=== PATIENT | male | born 1985 | race African-American/Black ===

== ENCOUNTER 2020-05-09 04:17 | Inpatient (IN) | payer OTHER ==
[2020-05-09] VITALS (17 sets, daily range): BP systolic 148–215; BP diastolic 93–134
[~2020-05-09] VITALS: Ht 185.4 cm; Wt 117.9 kg
[2020-05-09] MEDS ORDERED: NICARDIPINE 20MG/200ML PREMIX 200 ML ONE (07:07)
[2020-05-09 08:00] LABS: BASOPHILS % 0.6 % (0.0-1.0); EOSINOPHILS # (AUTO) 0.2 (0.0-0.4); EOSINOPHILS % 2.8 % (0.0-6.0); HEMATOCRIT 42.5 % (38.2-49.6); HEMOGLOBIN 13.8 g/dL (14.0-18.0); LYMPHOCYTES # (AUTO) 1.2 (1.0-3.2); LYMPHOCYTES % 17.9 % (18.0-39.1); MEAN CORPUSCULAR HEMOGLOBIN 27.3 pg (28-32); MEAN CORPUSCULAR HGB CONC 32.5 g/dL (31-35); MEAN CORPUSCULAR VOLUME 84.2 fL (81-99); MONOCYTES # (AUTO) 0.7 (0.2-0.8); MONOCYTES % 10.3 % (4.4-11.3); NEUTROPHILS # (AUTO) 4.5 (2.1-6.9); NEUTROPHILS % 67.7 % (38.7-80.0); PLATELET COUNT 160 x10e3/uL (140-360); RED BLOOD COUNT 5.05 x10e6/uL (4.3-5.7); RED CELL DISTRIBUTION WIDTH 14.3 % (11.7-14.4)
[2020-05-09 08:21] LABS: ALBUMIN 3.8 g/dL (3.5-5.0); ALBUMIN/GLOBULIN RATIO 1.2 (0.8-2.0); ANION GAP 16.9 mmol/L (8-16); CALCIUM 7.7 mg/dL (8.4-10.2); CREATININE, SERUM 2.62 mg/dL (0.72-1.25)
[2020-05-09 08:31] LABS: POTASSIUM 2.9 mmol/L (3.5-5.1)
[2020-05-09] MEDS: NICARDIPINE 20MG/200ML PREMIX 200 ML IV SCH ×3 (08:32→13:18)
[2020-05-09] MEDS ORDERED: CARVEDILOL 12.5 MG TAB PO SCH (09:00)
[2020-05-09] MEDS: NIFEDIPINE CR 30 MG TAB PO SCH ×2 (09:44→20:47)
[2020-05-09] MEDS: ENOXAPARIN INJ 80 MG/0.8 ML SYR SC SCH ×2 (10:00→20:47)
[2020-05-09] MEDS ORDERED: MINOXIDIL 2.5 MG TAB PO SCH (10:00)
[2020-05-09] MEDS: CLONAZEPAM 1 MG TAB PO PRN ×2 (10:09→20:48)
[2020-05-09] MEDS: HYDROCODONE/APAP 10MG-325MG TAB PO PRN ×5 (10:09→20:55)
[2020-05-09] MEDS ORDERED: POTASSIUM CHLORIDE 20 MEQ TAB CR PO ONE (10:45)
[2020-05-09] MEDS ORDERED: CLONIDINE HCL 0.1 MG TAB PO SCH (13:00)
[2020-05-09] MEDS: SODIUM CHLORIDE 0.9% IV SCH ×2 (15:05→21:48)
[2020-05-09] MEDS: NICARDIPINE HCL IV SCH ×2 (15:05→21:48)
[2020-05-09] MEDS: CYCLOBENZAPRINE HCL 10 MG TAB PO PRN (15:17)
[2020-05-09] MEDS: CEFTRIAXONE SOD 1 GM in SODIUM CHLORIDE 0.9% 50ML 50 ML IV SCH (15:17)
[2020-05-09] MEDS: FUROSEMIDE INJ 10 MG/ML 4 ML VIAL IV SCH ×2 (15:17→20:46)
[2020-05-09] MEDS: FAMOTIDINE 20 MG TAB PO SCH (15:22)
[2020-05-09 15:31] LABS: CHOL/HDL RATIO 4.4 (3.9-4.7)
[2020-05-09] MEDS ORDERED: CEFTRIAXONE SOD 1 GM/50 ML BAG IV SCH (16:00)
[2020-05-09] MEDS ORDERED: METOPROLOL TARTRATE 50 MG TAB PO SCH (17:00)
[2020-05-09] MEDS: CLONIDINE HCL 0.2 MG TAB PO SCH ×2 (18:14→20:47)
[2020-05-09 19:04] LABS: ANION GAP 15.4 mmol/L (8-16); CALCIUM 7.5 mg/dL (8.4-10.2); CREATININE, SERUM 2.3 mg/dL (0.72-1.25); POTASSIUM 3.4 mmol/L (3.5-5.1)
[2020-05-09] MEDS: CARVEDILOL 12.5 MG TAB PO SCH (20:46)
[2020-05-09] MEDS: ATORVASTATIN 40 MG TAB PO SCH (20:47)
[2020-05-09] MEDS ORDERED: CYCLOBENZAPRINE HCL 10 MG TAB PO SCH (21:00)
[2020-05-10] VITALS (27 sets, daily range): BP systolic 119–227; BP diastolic 62–160
[2020-05-10] MEDS: HYDROCODONE/APAP 10MG-325MG TAB PO PRN ×6 (02:10→22:30)
[2020-05-10] MEDS: SODIUM CHLORIDE 0.9% IV SCH (04:08)
[2020-05-10] MEDS: NICARDIPINE HCL IV SCH (04:08)
[2020-05-10 05:01] LABS: BASOPHILS # (AUTO) 0.1 (0.0-0.1); BASOPHILS % 1.1 % (0.0-1.0); EOSINOPHILS # (AUTO) 0.9 (0.0-0.4); EOSINOPHILS % 14.2 % (0.0-6.0); HEMATOCRIT 40.6 % (38.2-49.6); HEMOGLOBIN 13.2 g/dL (14.0-18.0); LYMPHOCYTES # (AUTO) 1.2 (1.0-3.2); LYMPHOCYTES % 18.3 % (18.0-39.1); MEAN CORPUSCULAR HEMOGLOBIN 27.5 pg (28-32); MEAN CORPUSCULAR HGB CONC 32.5 g/dL (31-35); MEAN CORPUSCULAR VOLUME 84.6 fL (81-99); MONOCYTES # (AUTO) 0.6 (0.2-0.8); MONOCYTES % 10.1 % (4.4-11.3); NEUTROPHILS # (AUTO) 3.5 (2.1-6.9); NEUTROPHILS % 55.8 % (38.7-80.0); PLATELET COUNT 182 x10e3/uL (140-360)
[2020-05-10 05:31] LABS: ANION GAP 14.4 mmol/L (8-16); CALCIUM 7.1 mg/dL (8.4-10.2); CREATININE, SERUM 2.18 mg/dL (0.72-1.25); POTASSIUM 3.4 mmol/L (3.5-5.1)
[2020-05-10] MEDS: CLONIDINE HCL 0.2 MG TAB PO SCH ×4 (06:27→21:24)
[2020-05-10] MEDS: FUROSEMIDE INJ 10 MG/ML 4 ML VIAL IV SCH ×2 (08:39→20:00)
[2020-05-10] MEDS: FAMOTIDINE 20 MG TAB PO SCH ×2 (08:39→17:03)
[2020-05-10] MEDS: LOSARTAN POTASSIUM 25 MG TAB PO SCH ×2 (08:39→08:46)
[2020-05-10] MEDS: ASPIRIN 81 MG CHEW TAB PO SCH (08:39)
[2020-05-10] MEDS: CARVEDILOL 12.5 MG TAB PO SCH ×2 (08:39→20:00)
[2020-05-10] MEDS: ENOXAPARIN INJ 80 MG/0.8 ML SYR SC SCH (08:40)
[2020-05-10] MEDS: NIFEDIPINE CR 30 MG TAB PO SCH ×2 (08:40→20:00)
[2020-05-10 10:00] LABS: MAGNESIUM 1.7 MG/DL (1.3-2.1); PHOSPHORUS 3.6 MG/DL (2.3-4.7)
[2020-05-10] MEDS: CLONAZEPAM 1 MG TAB PO PRN ×2 (10:35→21:30)
[2020-05-10] MEDS: HYDRALAZINE HCL 25 MG TAB PO SCH ×2 (12:02→14:32)
[2020-05-10] MEDS ORDERED: HYDRALAZINE HCL 25 MG TAB PO SCH ×2 (15:00→17:00)
[2020-05-10] MEDS ORDERED: SPIRONOLACTONE 25 MG TAB PO ONE (16:45)
[2020-05-10] MEDS: CEFTRIAXONE SOD 1 GM in SODIUM CHLORIDE 0.9% 50ML 50 ML IV SCH (17:03)
[2020-05-10] MEDS: ATORVASTATIN 40 MG TAB PO SCH (20:00)
[2020-05-10] MEDS ORDERED: LABETALOL HCL 5 MG/ML 20ML VIAL IV STA (21:22)
[2020-05-10] MEDS: HYDRALAZINE HCL 20 MG/ML VIAL IV PRN (23:06)
[2020-05-11] VITALS (26 sets, daily range): BP systolic 167–209; BP diastolic 87–142
[2020-05-11] MEDS: HYDRALAZINE HCL 25 MG TAB PO SCH ×4 (00:15→17:31)
[2020-05-11] MEDS: LABETALOL HCL 5 MG/ML 20ML VIAL IV PRN ×5 (00:15→15:10)
[2020-05-11] MEDS: HYDRALAZINE HCL 20 MG/ML VIAL IV PRN ×3 (01:30→06:20)
[2020-05-11] MEDS: HYDROCODONE/APAP 10MG-325MG TAB PO PRN ×5 (02:40→19:30)
[2020-05-11 04:18] LABS: BASOPHILS # (AUTO) 0.1 (0.0-0.1); BASOPHILS % 0.8 % (0.0-1.0); EOSINOPHILS # (AUTO) 1.1 (0.0-0.4); EOSINOPHILS % 17.8 % (0.0-6.0); HEMATOCRIT 38.5 % (38.2-49.6); HEMOGLOBIN 12.5 g/dL (14.0-18.0); LYMPHOCYTES # (AUTO) 1.1 (1.0-3.2); LYMPHOCYTES % 17.3 % (18.0-39.1); MEAN CORPUSCULAR HEMOGLOBIN 27.7 pg (28-32); MEAN CORPUSCULAR HGB CONC 32.5 g/dL (31-35); MEAN CORPUSCULAR VOLUME 85.4 fL (81-99); MONOCYTES # (AUTO) 0.6 (0.2-0.8); MONOCYTES % 9.8 % (4.4-11.3); NEUTROPHILS # (AUTO) 3.5 (2.1-6.9); PLATELET COUNT 185 x10e3/uL (140-360); RED BLOOD COUNT 4.51 x10e6/uL (4.3-5.7); RED CELL DISTRIBUTION WIDTH 14.1 % (11.7-14.4)
[2020-05-11 04:36] LABS: ANION GAP 14.3 mmol/L (8-16); CALCIUM 7.3 mg/dL (8.4-10.2); CREATININE, SERUM 2.03 mg/dL (0.72-1.25); POTASSIUM 3.3 mmol/L (3.5-5.1)
[2020-05-11 04:50] LABS: MAGNESIUM 1.7 MG/DL (1.3-2.1)
[2020-05-11] MEDS: CLONIDINE HCL 0.2 MG TAB PO SCH (05:00)
[2020-05-11] MEDS: LOSARTAN POTASSIUM 25 MG TAB PO SCH (06:12)
[2020-05-11] MEDS: NIFEDIPINE CR 30 MG TAB PO SCH ×2 (06:13→22:50)
[2020-05-11] MEDS: FAMOTIDINE 20 MG TAB PO SCH ×2 (08:45→15:10)
[2020-05-11] MEDS: FUROSEMIDE INJ 10 MG/ML 4 ML VIAL IV SCH ×2 (08:45→22:49)
[2020-05-11] MEDS: ASPIRIN 81 MG CHEW TAB PO SCH (08:45)
[2020-05-11] MEDS: CARVEDILOL 12.5 MG TAB PO SCH (08:46)
[2020-05-11] MEDS ORDERED: SPIRONOLACTONE 25 MG TAB PO SCH (09:00)
[2020-05-11] MEDS ORDERED: LABETALOL HCL 200 MG TAB PO SCH (10:00)
[2020-05-11] MEDS: DOXAZOSIN MESYLATE 2 MG TAB PO SCH ×2 (11:16→22:49)
[2020-05-11] MEDS ORDERED: CLONIDINE HCL 0.3MG/24 HR PATCH TOP SCH (14:00)
[2020-05-11] MEDS ORDERED: POTASSIUM CHLORIDE 20 MEQ TAB CR PO NR (14:00)
[2020-05-11] MEDS ORDERED: CLONIDINE HCL 0.2 MG/24 HR 1 EA PATCH TOP SCH (14:00)
[2020-05-11] MEDS: CLONAZEPAM 1 MG TAB PO PRN (15:02)
[2020-05-11] MEDS: CEFTRIAXONE SOD 1 GM in SODIUM CHLORIDE 0.9% 50ML 50 ML IV SCH (15:10)
[2020-05-11] MEDS: LABETALOL HCL 200 MG TAB PO SCH (17:31)
[2020-05-11] MEDS: ATORVASTATIN 40 MG TAB PO SCH (22:49)
[2020-05-12] VITALS (28 sets, daily range): BP systolic 124–224; BP diastolic 58–143
[2020-05-12] MEDS: HYDRALAZINE HCL 25 MG TAB PO SCH ×4 (00:01→18:06)
[2020-05-12] MEDS: LABETALOL HCL 5 MG/ML 20ML VIAL IV PRN ×3 (03:46→18:06)
[2020-05-12] MEDS: HYDROCODONE/APAP 10MG-325MG TAB PO PRN ×7 (05:30→22:48)
[2020-05-12] MEDS: FAMOTIDINE 20 MG TAB PO SCH ×2 (08:19→16:48)
[2020-05-12] MEDS: MINOXIDIL 2.5 MG TAB PO SCH ×3 (08:19→20:55)
[2020-05-12] MEDS: FUROSEMIDE INJ 10 MG/ML 4 ML VIAL IV SCH ×2 (08:19→20:36)
[2020-05-12] MEDS: SPIRONOLACTONE 25 MG TAB PO SCH (08:19)
[2020-05-12] MEDS: ASPIRIN 81 MG CHEW TAB PO SCH (08:20)
[2020-05-12] MEDS: LOSARTAN POTASSIUM 25 MG TAB PO SCH (08:20)
[2020-05-12] MEDS: LABETALOL HCL 200 MG TAB PO SCH ×2 (08:20→16:49)
[2020-05-12] MEDS: NIFEDIPINE CR 30 MG TAB PO SCH ×2 (08:20→20:36)
[2020-05-12] MEDS: DOXAZOSIN MESYLATE 2 MG TAB PO SCH ×2 (08:20→20:36)
[2020-05-12] MEDS: ISOSORBIDE MONONITRATE 30 MG TAB CR PO SCH (14:10)
[2020-05-12] MEDS: CLONAZEPAM 1 MG TAB PO PRN (14:11)
[2020-05-12] MEDS: CEFTRIAXONE SOD 1 GM in SODIUM CHLORIDE 0.9% 50ML 50 ML IV SCH (16:48)
[2020-05-12] MEDS: HYDRALAZINE HCL 20 MG/ML VIAL IV PRN (16:49)
[2020-05-12] MEDS: ATORVASTATIN 40 MG TAB PO SCH (20:36)
[2020-05-13] VITALS (18 sets, daily range): BP systolic 164–227; BP diastolic 96–157
[2020-05-13] MEDS: HYDRALAZINE HCL 25 MG TAB PO SCH ×5 (06:12→23:50)
[2020-05-13] MEDS: MINOXIDIL 2.5 MG TAB PO SCH ×3 (06:12→22:00)
[2020-05-13 06:48] LABS: ANION GAP 15.2 mmol/L (8-16); CALCIUM 8.3 mg/dL (8.4-10.2); CREATININE, SERUM 1.92 mg/dL (0.72-1.25); POTASSIUM 3.2 mmol/L (3.5-5.1)
[2020-05-13] MEDS: HYDROCODONE/APAP 10MG-325MG TAB PO PRN ×5 (06:54→23:29)
[2020-05-13] MEDS: HYDRALAZINE HCL 20 MG/ML VIAL IV PRN ×3 (07:19→16:47)
[2020-05-13] MEDS: FAMOTIDINE 20 MG TAB PO SCH ×2 (07:47→16:18)
[2020-05-13] MEDS: ASPIRIN 81 MG CHEW TAB PO SCH (08:10)
[2020-05-13] MEDS: FUROSEMIDE INJ 10 MG/ML 4 ML VIAL IV SCH ×2 (08:10→20:44)
[2020-05-13] MEDS: SPIRONOLACTONE 25 MG TAB PO SCH (08:10)
[2020-05-13] MEDS: DOXAZOSIN MESYLATE 2 MG TAB PO SCH ×2 (08:11→20:44)
[2020-05-13] MEDS: ALPRAZOLAM 0.5 MG TAB PO SCH ×3 (08:11→20:45)
[2020-05-13] MEDS: ISOSORBIDE MONONITRATE 30 MG TAB CR PO SCH (08:11)
[2020-05-13] MEDS: NIFEDIPINE CR 30 MG TAB PO SCH ×2 (08:11→20:44)
[2020-05-13] MEDS: LOSARTAN POTASSIUM 25 MG TAB PO SCH (08:11)
[2020-05-13] MEDS: LABETALOL HCL 200 MG TAB PO SCH ×3 (08:11→18:59)
[2020-05-13] MEDS ORDERED: POTASSIUM CHLORIDE 10MEQ EA PO ONE (08:15)
[2020-05-13] MEDS: LABETALOL HCL 5 MG/ML 20ML VIAL IV PRN ×4 (09:24→23:14)
[2020-05-13] MEDS: CYCLOBENZAPRINE HCL 10 MG TAB PO PRN (15:22)
[2020-05-13] MEDS: CEFTRIAXONE SOD 1 GM in SODIUM CHLORIDE 0.9% 50ML 50 ML IV SCH (16:18)
[2020-05-13] MEDS: ATORVASTATIN 40 MG TAB PO SCH (20:44)
[2020-05-14] VITALS (17 sets, daily range): BP systolic 118–199; BP diastolic 56–136
[2020-05-14] MEDS: LABETALOL HCL 5 MG/ML 20ML VIAL IV PRN ×3 (02:42→13:03)
[2020-05-14] MEDS: HYDROCODONE/APAP 10MG-325MG TAB PO PRN ×5 (04:05→21:34)
[2020-05-14] MEDS: MINOXIDIL 2.5 MG TAB PO SCH ×3 (06:10→21:38)
[2020-05-14] MEDS: HYDRALAZINE HCL 25 MG TAB PO SCH ×3 (06:11→17:29)
[2020-05-14] MEDS ORDERED: ALPRAZOLAM 1 MG TAB PO SCH (07:30)
[2020-05-14] MEDS: FUROSEMIDE INJ 10 MG/ML 4 ML VIAL IV SCH (08:13)
[2020-05-14] MEDS: SPIRONOLACTONE 25 MG TAB PO SCH (08:13)
[2020-05-14] MEDS: ASPIRIN 81 MG CHEW TAB PO SCH (08:14)
[2020-05-14] MEDS: ISOSORBIDE MONONITRATE 30 MG TAB CR PO SCH (08:14)
[2020-05-14] MEDS: LOSARTAN POTASSIUM 25 MG TAB PO SCH (08:14)
[2020-05-14] MEDS: DOXAZOSIN MESYLATE 2 MG TAB PO SCH (08:14)
[2020-05-14] MEDS: NIFEDIPINE CR 30 MG TAB PO SCH ×2 (08:15→20:51)
[2020-05-14 09:14] LABS: BASOPHILS # (AUTO) 0.1 (0.0-0.1); EOSINOPHILS # (AUTO) 0.6 (0.0-0.4); EOSINOPHILS % 10.8 % (0.0-6.0); HEMOGLOBIN 13.9 g/dL (14.0-18.0); LYMPHOCYTES # (AUTO) 0.8 (1.0-3.2); LYMPHOCYTES % 14.5 % (18.0-39.1); MEAN CORPUSCULAR HGB CONC 33.1 g/dL (31-35); MEAN CORPUSCULAR VOLUME 84.5 fL (81-99); MONOCYTES # (AUTO) 0.5 (0.2-0.8); MONOCYTES % 9.5 % (4.4-11.3); NEUTROPHILS # (AUTO) 3.3 (2.1-6.9); PLATELET COUNT 200 x10e3/uL (140-360); RED BLOOD COUNT 4.97 x10e6/uL (4.3-5.7); RED CELL DISTRIBUTION WIDTH 14.5 % (11.7-14.4)
[2020-05-14 09:25] LABS: INR 0.99; PROTHROMBIN TIME 13.7 seconds (11.9-14.5)
[2020-05-14] MEDS: HYDRALAZINE HCL 20 MG/ML VIAL IV PRN ×2 (09:28→12:21)
[2020-05-14 09:35] LABS: ANION GAP 15.4 mmol/L (8-16); CALCIUM 8.4 mg/dL (8.4-10.2); CREATININE, SERUM 1.84 mg/dL (0.72-1.25); POTASSIUM 3.4 mmol/L (3.5-5.1)
[2020-05-14] MEDS ORDERED: MAGNESIUM SULFATE 2GM/50ML 50 ML IV ONE (11:00)
[2020-05-14] MEDS ORDERED: POTASSIUM CHLORIDE 20 MEQ TAB CR PO ONE (11:30)
[2020-05-14 11:41] LABS: FREE THYROXINE INDEX 3.1541 (1.4-3.8); THYROID STIMULATING HORMONE 1.533 uIU/mL (0.350-4.940)
[2020-05-14] MEDS: LABETALOL HCL 200 MG TAB PO SCH ×2 (11:50→17:54)
[2020-05-14] MEDS: ESCITALOPRAM OXALATE 10 MG TAB PO SCH (12:20)
[2020-05-14] MEDS: ALPRAZOLAM 0.5 MG TAB PO SCH ×2 (12:20→21:38)
[2020-05-14] MEDS ORDERED: DEXMEDETOMIDINE 200MCG/NS 50ML 50 ML IV ONE (12:59)
[2020-05-14] MEDS: DEXMEDETOMIDINE HCL 200 MCG in SODIUM CHLORIDE 0.9% 50ML 48 ML IV SCH ×2 (13:20→17:56)
[2020-05-14] MEDS: NICARDIPINE 20MG/200ML PREMIX 200 ML IV SCH ×2 (13:46→17:56)
[2020-05-14] MEDS: ATORVASTATIN 40 MG TAB PO SCH (20:50)
[2020-05-15] VITALS (26 sets, daily range): BP systolic 150–202; BP diastolic 83–130
[2020-05-15] MEDS: NICARDIPINE 20MG/200ML PREMIX 200 ML IV SCH (00:55)
[2020-05-15] MEDS: HYDROCODONE/APAP 10MG-325MG TAB PO PRN ×5 (02:38→19:30)
[2020-05-15] MEDS: DEXMEDETOMIDINE HCL 200 MCG in SODIUM CHLORIDE 0.9% 50ML 48 ML IV SCH ×2 (05:00→22:02)
[2020-05-15] MEDS ORDERED: DEXMEDETOMIDINE 200MCG/NS 50ML 50 ML IV ONE (05:01)
[2020-05-15 05:16] LABS: ALBUMIN 3.6 g/dL (3.5-5.0); ALBUMIN/GLOBULIN RATIO 1.5 (0.8-2.0); ANION GAP 13.2 mmol/L (8-16); CALCIUM 8.3 mg/dL (8.4-10.2); CREATININE, SERUM 1.68 mg/dL (0.72-1.25); POTASSIUM 3.2 mmol/L (3.5-5.1)
[2020-05-15] MEDS: MINOXIDIL 2.5 MG TAB PO SCH ×3 (05:54→22:01)
[2020-05-15] MEDS: LABETALOL HCL 200 MG TAB PO SCH ×5 (05:54→23:59)
[2020-05-15] MEDS: HYDRALAZINE HCL 25 MG TAB PO SCH ×5 (05:54→23:56)
[2020-05-15] MEDS: ALPRAZOLAM 0.5 MG TAB PO SCH ×3 (05:54→22:01)
[2020-05-15] MEDS ORDERED: POTASSIUM CHLORIDE 20 MEQ TAB CR PO ONE ×2 (06:35→11:15)
[2020-05-15] MEDS ORDERED: POTASSIUM CHLORIDE 20MEQ/100ML 200 ML IV ONE (06:45)
[2020-05-15] MEDS: SPIRONOLACTONE 25 MG TAB PO SCH (07:59)
[2020-05-15] MEDS: ASPIRIN 81 MG CHEW TAB PO SCH (08:00)
[2020-05-15] MEDS: NIFEDIPINE CR 30 MG TAB PO SCH ×2 (08:00→21:03)
[2020-05-15] MEDS: ESCITALOPRAM OXALATE 10 MG TAB PO SCH (08:00)
[2020-05-15] MEDS: LOSARTAN POTASSIUM 25 MG TAB PO SCH (08:00)
[2020-05-15] MEDS: ISOSORBIDE MONONITRATE 30 MG TAB CR PO SCH (08:00)
[2020-05-15 15:24] LABS: CLARITY,URINE SL CLOUDY (CLEAR); COLOR,URINE STRAW (YELLOW); KETONES,URINE NEGATIVE (NEGATIVE); LEUKOCYTE ESTERASE ,URINE NEGATIVE (NEGATIVE); NITRITE,URINE NEGATIVE (NEGATIVE); PROTEIN,URINE DIPSTICK >=300 (NEGATIVE); URINE UROBILINOGEN 0.2 mg/dL (0.2 - 1)
[2020-05-15 15:27] LABS: AMPHETAMINES SCREEN,URINE NEGATIVE (NEGATIVE); BENZODIAZEPINES SCREEN,URINE POSITIVE (NEGATIVE); PHENCYCLIDINE SCREEN,URINE NEGATIVE (NEGATIVE)
[2020-05-15 15:54] LABS: CREATININE,URINE RANDOM 138.82 mg/dL (63-166); TOTAL PROTEIN, URINE 124.3 mg/dL (1-14)
[2020-05-15] MEDS: LABETALOL HCL 5 MG/ML 20ML VIAL IV PRN (17:51)
[2020-05-15] MEDS: HYDRALAZINE HCL 20 MG/ML VIAL IV PRN (18:19)
[2020-05-15] MEDS: ATORVASTATIN 40 MG TAB PO SCH (21:03)
[2020-05-16] VITALS (24 sets, daily range): BP systolic 92–202; BP diastolic 47–129
[2020-05-16] MEDS: LABETALOL HCL 5 MG/ML 20ML VIAL IV PRN
[2020-05-16] MEDS: HYDRALAZINE HCL 20 MG/ML VIAL IV PRN (02:14)
[2020-05-16] MEDS: DEXMEDETOMIDINE HCL 200 MCG in SODIUM CHLORIDE 0.9% 50ML 48 ML IV SCH ×3 (02:14→10:15)
[2020-05-16] MEDS: NICARDIPINE 20MG/200ML PREMIX 200 ML IV SCH ×2 (04:06→09:36)
[2020-05-16 04:47] LABS: BASOPHILS # (AUTO) 0.1 (0.0-0.1); EOSINOPHILS # (AUTO) 0.4 (0.0-0.4); EOSINOPHILS % 6.8 % (0.0-6.0); HEMOGLOBIN 13.8 g/dL (14.0-18.0); LYMPHOCYTES % 15.6 % (18.0-39.1); MEAN CORPUSCULAR HGB CONC 32.9 g/dL (31-35); MEAN CORPUSCULAR VOLUME 85.4 fL (81-99); MONOCYTES # (AUTO) 0.6 (0.2-0.8); MONOCYTES % 10.2 % (4.4-11.3); NEUTROPHILS # (AUTO) 4.2 (2.1-6.9); NEUTROPHILS % 66.2 % (38.7-80.0); PLATELET COUNT 213 x10e3/uL (140-360); RED BLOOD COUNT 4.92 x10e6/uL (4.3-5.7); RED CELL DISTRIBUTION WIDTH 13.9 % (11.7-14.4)
[2020-05-16 05:13] LABS: ANION GAP 11.5 mmol/L (8-16); CALCIUM 8.6 mg/dL (8.4-10.2); CREATININE, SERUM 1.76 mg/dL (0.72-1.25); POTASSIUM 3.5 mmol/L (3.5-5.1)
[2020-05-16] MEDS: HYDRALAZINE HCL 25 MG TAB PO SCH ×3 (06:17→17:30)
[2020-05-16] MEDS: LABETALOL HCL 200 MG TAB PO SCH ×3 (06:17→17:31)
[2020-05-16] MEDS: MINOXIDIL 2.5 MG TAB PO SCH ×3 (06:17→22:00)
[2020-05-16] MEDS: ALPRAZOLAM 0.5 MG TAB PO SCH ×3 (06:17→22:02)
[2020-05-16] MEDS: ESCITALOPRAM OXALATE 10 MG TAB PO SCH (08:35)
[2020-05-16] MEDS: SPIRONOLACTONE 25 MG TAB PO SCH (08:35)
[2020-05-16] MEDS: ASPIRIN 81 MG CHEW TAB PO SCH (08:35)
[2020-05-16] MEDS: LOSARTAN POTASSIUM 25 MG TAB PO SCH (08:35)
[2020-05-16] MEDS: NIFEDIPINE CR 30 MG TAB PO SCH ×2 (08:35→21:00)
[2020-05-16] MEDS: HYDROCODONE/APAP 10MG-325MG TAB PO PRN ×5 (08:35→21:57)
[2020-05-16] MEDS: ISOSORBIDE MONONITRATE 30 MG TAB CR PO SCH (08:35)
[2020-05-16] MEDS: ATORVASTATIN 40 MG TAB PO SCH (21:57)
[2020-05-17] VITALS (10 sets, daily range): BP systolic 105–174; BP diastolic 33–118
[2020-05-17] MEDS: HYDROCODONE/APAP 10MG-325MG TAB PO PRN ×3 (02:06→10:14)
[2020-05-17] MEDS: HYDRALAZINE HCL 25 MG TAB PO SCH ×2 (06:05)
[2020-05-17] MEDS: LABETALOL HCL 200 MG TAB PO SCH ×2 (06:05)
[2020-05-17] MEDS: ALPRAZOLAM 0.5 MG TAB PO SCH (06:05)
[2020-05-17] MEDS: MINOXIDIL 2.5 MG TAB PO SCH (06:05)
[2020-05-17] MEDS: ASPIRIN 81 MG CHEW TAB PO SCH (08:21)
[2020-05-17] MEDS: LOSARTAN POTASSIUM 25 MG TAB PO SCH (08:22)
[2020-05-17] MEDS: ISOSORBIDE MONONITRATE 30 MG TAB CR PO SCH (08:23)
[2020-05-17] MEDS: NIFEDIPINE CR 30 MG TAB PO SCH (08:23)
[2020-05-17] MEDS: ESCITALOPRAM OXALATE 10 MG TAB PO SCH (08:23)
[2020-05-17] MEDS: SPIRONOLACTONE 25 MG TAB PO SCH (08:27)
[2020-05-17] MEDS ORDERED: CAPTOPRIL 25 MG TAB PO SCH (09:00)
[2020-05-17] MEDS ORDERED: CLONIDINE HCL 0.3MG/24 HR PATCH TOP SCH (09:15)
[2020-05-17] MEDS ORDERED: CAPTOPRIL 25 MG TAB PO NR (09:30)
[2020-05-17] MEDS ORDERED: ASPIRIN81 MG PO (09:54)
[2020-05-17] MEDS ORDERED: ALPRAZOLAM0.5 MG PO (09:54)
[2020-05-17] MEDS ORDERED: LIPITOR20 MG PO (09:55)
[2020-05-17] MEDS ORDERED: CATAPRES-TTS 31 EA TD (09:55)
[2020-05-17] MEDS ORDERED: LEXAPRO10 MG PO (09:56)
[2020-05-17] MEDS ORDERED: ISOSORBIDE MONO30 MG PO (09:56)
[2020-05-17] MEDS ORDERED: HYDRALAZINE HC100 MG PO (09:56)
[2020-05-17] MEDS ORDERED: LOSARTAN POTAS100 MG PO (09:57)
[2020-05-17] MEDS ORDERED: LABETALOL HCL100 MG PO (09:57)
[2020-05-17] MEDS ORDERED: MINOXIDIL10 MG PO (09:57)
[2020-05-17] MEDS ORDERED: PROCARDIA XL30 MG PO (09:58)
[2020-05-17] MEDS ORDERED: ALDACTONE50 MG PO (09:58)
[2020-05-18] MEDS ORDERED: CLONIDINE HCL 0.3MG/24 HR PATCH TOP SCH (14:20)
== END 2020-05-17 11:00 | disposition home or self-care (01) | DRG 305 ==
LOC: ICU 06:48
PROVIDERS: ADMIT Internal Medicine; ATTEND Internal Medicine
DX: I16.1 Hypertensive emergency (principal); N17.9 Acute kidney failure, unspecified; I50.32 Chronic diastolic (congestive) heart failure; I13.0 Hypertensive heart and chronic kidney disease with heart failure and stage 1 through stage 4 chronic kidney disease, or unspecified chronic kidney disease; E66.9 Obesity, unspecified; Z68.34 Body mass index [BMI] 34.0-34.9, adult; K21.9 Gastro-esophageal reflux disease without esophagitis; D35.00 Benign neoplasm of unspecified adrenal gland; N18.9 Chronic kidney disease, unspecified; F17.200 Nicotine dependence, unspecified, uncomplicated; F41.9 Anxiety disorder, unspecified; E87.6 Hypokalemia
CPT/HCPCS: 36415; 71045; 72195; 74181; 76770; 80048; 80053; 80061; 80307; 81001; 82533; 82570; 83036; 83735; 83835; 83880; 84100; 84156; 84436; 84443; 84479; 85025; 85610; 93976; 99251; J0360; J0696; J1650; J1940; J3475; J3480; J7030